=== PATIENT | female | born 1990 | race Caucasian/White ===

== ENCOUNTER 2023-11-14 07:10 | Outpatient (CLI) | payer OTHER, SELFPAY ==
--- NOTE | 2023-11-14 07:15 | CRLHL7_ITS ---
For Patients: As a result of the Century Cures Act, medical imaging exams and procedure reports are released immediately into your electronic medical record. You may view this report before your referring provider. If you have questions, please contact your health care provider. Indication: Pelvic and perineal pain Technique: Pelvic ultrasound, transabdominal and transvaginal, utilizing grayscale and color and spectral Doppler. Comparison: None Findings: The uterus is within normal limits in appearance and size measuring 8.0 x 5.0 x 6.4 centimeters. No focal uterine masses or lesions. The endometrium is within normal limits in appearance and thickness measuring 0.8 centimeters. No endometrial masses or fluid in the endometrial canal. The bilateral ovaries are within normal limits in appearance measuring 3.3 x 2.7 x 2.8 centimeters on the right and 3.3 x 2.1 x 2.3 centimeters on the left. Normal arterial and venous flow is visualized within the bilateral ovaries. There are simple appearing ovarian cysts bilaterally measuring 2.5 centimeters on the right and 1.9 centimeters on the left. Trace amount of pelvic free fluid, likely physiologic. Impression: 1. The uterus and endometrium are within normal limits in appearance. 2. The bilateral ovaries are normal in size with normal arterial and venous flow bilaterally. 3. Simple appearing ovarian cysts bilaterally. Dictated by Leroy Del Rosario MD @ 11/16/2023 10:37:09 PM (Electronically Signed)
== END 2023-11-14 07:11 | disposition home or self-care (01) ==
PROVIDERS: Visit Provider Obstetrics & Gynecology
DX: R10.2 Pelvic and perineal pain (principal); N83.201 Unspecified ovarian cyst, right side; N83.202 Unspecified ovarian cyst, left side
CPT/HCPCS: 76830; 76856; 93976